=== PATIENT | male | born 1960 | race Caucasian/White ===

== ENCOUNTER 2016-12-17 20:39 | Emergency (ER) | payer BC ==
[2016-12-17] MEDS ORDERED: LABETALOL 100 MG/20 ML VIAL ONE (22:05)
== END 2016-12-17 23:43 | disposition home or self-care (01) ==
LOC: ER 20:39
DX: I10 Essential (primary) hypertension (principal)
CPT/HCPCS: 36415; 71020; 80053; 82553; 84484; 85025; 85610; 85730; 93005; 96374